=== PATIENT | male | born 1970 | race Caucasian/White ===

== ENCOUNTER 2020-08-20 11:44 | Outpatient (REF) | payer BC, SELFPAY | END 2020-08-20 11:45 | disposition home or self-care (01) | LOC: HO.LAB 11:44 | PROVIDERS: PCP Internal Medicine; Visit Provider Internal Medicine | DX: Z20.828 Contact with and (suspected) exposure to other viral communicable diseases (principal) | CPT/HCPCS: C9803; U0003 ==

== ENCOUNTER 2024-09-03 12:10 | Outpatient (AMB) | payer OTHER, SELFPAY ==
--- NOTE | 2024-09-03 12:15 | A.OFFPC_ITS ---
Vital Signs 09/03/24 12:22 09/03/24 12:44 Height 5 ft 10 in Weight 180 lb 8 oz BMI 25.9 BP 143/75 H 138/80 Blood Pressure Location Rt brachial Rt brachial Position Sitting Right Lateral Respiration 16 Pulse 83 Pulse Source Pulse Oximeter Temp 98.4 F Temp Source Temporal Artery Scan Pulse Oximetry (%) 100 Oxygen Delivery Method Room Air Intake Visit Reasons: Haven't seen a doctor in a while Intake Note: patient here for New patient visit Chief Growth Officer Required: No Allergies No Known Allergies [No Known Allergies*] Allergy (Verified 09/03/24 12:29) Medication List - Last Reconciled 09/03/24 by Jocelynn Louis CNP No Known Home Meds Tobacco use date assessed: 09/03/24 Dental Screening Dental Screen Date: 09/03/24 Did you have a dental visit in the last 12 months?: No Did you have a dental problem in the last 6 months where you did not have access to dental care?: No Was dental information given to patient?: Yes HPI HPI Comments History of Present Illness Details New patient Prior PCP: Max Downey Last office visit/labs: About 12 years ago Last physical was with DOT: About 3 years ago The patient is a 53-year-old male presenting with a request to establish a primary care relationship and obtain a referral for ophthalmologic evaluation due to glare and visual disturbances following intraocular lens implants in both eyes. The patient has a history of achalasia, diagnosed at age 28, which he continues to manage. He had undergone intraocular lens implantation approximately two years ago, following the failure of a previous lens procedure intended to correct poor vision, which resulted in halos and glares. The implants were performed as an alternative after being advised against Lasik surgery due to age-related visual concerns. Despite current treatment with eye drops, provided by Dr. Meyer in [facility] the patient reports persistent issue with glare. His inspector eyeglass frames, Dr. Meyer, requested a new ophthalmology referral. Health Maintenance - Last eye exam was with Anton Samano, a month ago - No history of shingles vaccination; re commended at age 48 - Tetanus vaccination due today; last ad ministered 10 years ago - No current flu vaccinations; patient d eclines - Colonoscopy conducted seven years ago, reported as normal - Regular exercise regime with weight li fting and daily physical activity - Healthy diet generally maintained - Consumes 6-8 beers per week, predomina ntly over weekends - Smoking and recreational drug use lia ed - Routine dental care last accessed appr oximately seven years ago for cleaning; follow-up recommended Social History - Engages in regular weight lifting and physical activity daily as part of work routine - Reports generally maintaining a health y diet - Alcohol consumption averages 6-8 beers weekly, primarily on weekends - Denies use of tobacco or recreational drugs - Previously employed at [employer] PMHx - Acalasia SurgHx - Intra-ocular lens implant FHx: - Dad: alcohol abuse [facility] Medical History (Updated 09/03/24 @ 13:04 by Jocelynn Louis CNP) Achalasia Surgical History (Updated 09/03/24 @ 13:04 by Jocelynn Louis CNP) History of intraocular lens implant Family History (Updated 09/03/24 @ 12:31 by Tasha Gayle) Father Alcohol abuse Brother Asthma Social History Housing: House Patient Tobacco Use Status: Never used Tobacco e-Cigarette/Vaping Use: Never Used service: No Current occupational status: employed Current occupation: [employer] Current occupational exposures/hazards: No Cognitive needs: No Hearing needs: No Vision needs: No Questionnaire PHQ-9 Over the last 2 weeks, how often have you been bothered by any of the following problems? 1. Little interest or pleasure in doing things: not at all 2. Feeling down, depressed, or hopeless: not at all 3. Trouble falling or staying asleep, or sleeping too much: not at all 4. Feeling tired or having little energy: several days 5. Poor appetite or overeating: not at all 6. Feeling bad about yourself - or that you are a failure or have let yourself or your family down: not at all 7. Trouble concentrating on things, such as reading the newspaper or watching television: several days 8. Moving or speaking so slowly that other people could have noticed. Or the opposite - being so fidgety or restless that you have been moving around a lot more than usual: not at all 9. Thoughts that you would be better off or of hurting yourself in some way: not at all Total score: 2 Depression Screening Interpretation: Negative Depression Screening Done: Yes 03046 - PHQ-9 Billing: Yes Source: Developed by Drs. Miguel Ángel Mena, Alva Cobb, Bg Raygoza and colleagues, with an educational leidy from [employer]. Thrive Questionnaire Date Thrive assessed: 09/03/24 I am a: Patient What is your living situation today?: I have a steady place to live Within the past 12 months, did the food you bought not last and you didn't have the money to get more?: Never true Within the past 12 months, did you worry whether your food would run out before you got money to buy more?: Never true Do you have trouble paying for medicines?: No Do you have trouble getting transportation to medical appointments?: No Do you have trouble paying your heating and electricity bill?: No Do you have trouble taking care of your child, family member or friend?: No Do you have trouble with day-to-day activities such as bathing, preparing meals, shopping, managing finances, etc.?: No Are you currently unemployed and looking for a job?: No Are you interested in more education?: No Please select the resources that you would like help with: None Currently or been in a relationship where the following occur: No concerns reported THRIVE Score: 0 AUDIT C Alcohol Use Questionnaire (AUDIT-C) 1. How often do you have a drink containing alcohol?: 2-4 times a month 2. How many drinks containing alcohol do you have on a typical day when you are drinking?: 5 or 6 3. How often do you have six or more drinks on one occasion?: Monthly Total Score: 6 Score Reviewed/Action Taken: Yes MACI-7 AMB Questionnaire MACI-7 Date MACI - 7 assessed: 09/03/24 Feeling nervous, anxious, or on edge: 1 = Several days Not being able to stop or control worryin = Not at all Worrying too much about different things: 1 = Several days Trouble relaxin = Several days Being so restless that it is hard to sit still: 1 = Several days Becoming easily annoyed or irritable: 1 = Several days Feeling afraid as if something awful might happen: 0 = Not at all Total MACI-7 score (0-4 normal; 5-9 mild; 10-14 moderate; 15-21 severe): 5 Source: Developed by Drs. Miguel Ángel Mena, Alva Cobb, Bg Raygoza and colleagues, with an educational leidy from [employer] MACI-7 Assessment Billing MACI-7 Assessment Tool: MACI-7 Assessment 06792 Review of Systems Const Details: Denies chills, Denies fatigue, Denies fever(s), Denies headache(s) and Denies weakness HEENT Reports glare and halos in vision post-intraocular lens implants, Denies dizziness, Denies headache(s), Denies hearing loss, Denies nasal congestion, Denies sinus pain, Denies sinus pressure and Denies sore throat Card Denies chest pain, Denies lightheadedness, Denies dyspnea and Denies other (palpitations) Resp Denies cough, Denies dyspnea and Denies wheezing GI Denies abdominal pain, Denies melena, Denies hematochezia, Denies change in bowel habits, Denies dyspepsia and Denies nausea Denies hematuria and Denies dysuria Musc Denies abnormal gait, Denies myalgias, Denies arthralgias, Denies numbness and Denies tingling Skin/Breast Denies rash, Denies unusual bruising and Denies wounds Neuro Denies abnormal gait, Denies dizziness, Denies headache(s), Denies memory loss, Denies numbness, Denies Sensory deficit (Neuro), Denies tingling and Denies weakness Psych Denies anxiety, Denies depression and Denies memory loss Endo Denies cold intolerance, Denies fatigue, Denies heat intolerance, Denies p olydipsia and Denies polyuria Daniel/Lymph Denies easy bleeding and Denies easy bruising Aller/Immun Denies wheezing Physical exam (Primary Care) Vital Signs: Last Vital Signs Temp 98.4 F 09/03/24 12:22 Pulse 83 09/03/24 12:22 Resp 16 09/03/24 12:22 BP 138/80 09/03/24 12:44 Pulse Ox 100 09/03/24 12:22 Oxygen Delivery Method Room Air 09/03/24 12:22 BMI result Body Mass Index 25.9 Tobacco/Smoking Status: Tobacco use Status Tobacco use date assessed 09/03/24 09/03/24 12:22 Patient Tobacco Use Status Never used Tobacco 09/03/24 12:22 e-Cigarette/Vaping Use Never Used 12/11/24 12:22 PHQ-9: PHQ-9 Score PHQ-9: Total score 2 09/03/24 12:33 Depression Screening Interpretation: Negative Thrive Assessment: Date of Thrive Assessment Date Thrive assessed 09/03/24 09/03/24 12:22 Currently or been in a relationship where the following occur: No concerns reported Const Other: General: no acute distress, well developed, alert and awake Nutritional Appearance: well nourished Orientation/consciousness: patient oriented x3 [facility] Head: Yes normocephalic and Yes atraumatic Ears: hearing grossly normal bilaterally and TM's normal bilaterally General nose exam: Normal external nose present and Normal nares present Mouth: Normal oral and palatal mucosa present and moist mucous membranes Teeth and gingiva: dentition normal Throat: Yes oropharynx normal Eyes Pupils: Equal, round and reactive pupils present and Pupil accommodation reflex normal EOM: EOMs intact bilaterally Neck Neck: Yes normal visual inspection, Yes no lymphadenopathy and Yes trachea midline Thyroid: Thyroid normal Carotids: no bruits Lymphatic: no lymphadenopathy noted Chest Chest palpation & inspection: normal inspection of the chest Resp Effort & Inspection: normal respiratory effort Auscultation: clear to auscultation bilaterally Cardio Rate: regular rate Rhythm: regular rhythm Heart sounds: S1 normal heart sound present, S2 normal heart sound present, no gallops, no murmurs and no rubs Bruits: no abdominal aortic bruits and no carotid bruits GI Palpation (GI): No Abdominal aortic bruit present, Soft to palpation, nontender, No hepatosplenomegaly present and No Rebound tenderness present Auscultation: normal bowel sounds General: Yes no CVA tenderness Back/Spine/Pelvis Back: no CVA tenderness Cervical Spine: cervical ROM normal and No Cervical spine tenderness Thoracic/Lumbar Spine: thoraco-lumbar ROM normal, No pain with thoraco-lumbar ROM, No thoracic spinal tenderness and No lumbar spinal tenderness Skin General: warm and dry. Normal skin color. Normal skin turgor Lesions: no lesions Rashes: no rashes Trauma: no lacerations or abrasions Wounds: no wounds Nails: normal Neuro General: patient oriented x3, gait normal and CN's II-XI intact bilaterally Cranial nerves: Yes Equal, round and reactive pupils present Cognition (Neuro): normal cognition Gait exam (Neuro): Normal gait present Motor exam (neuro): 5/5 motor strength present throughout Sensory Exam: No Sensory deficit (Neuro) Deep tendon reflexes (DTR's): Right patellar reflex intensity grade: 2+ and Left patellar reflex intensity grade: 2+ Extrem General: Yes normal to inspection, No edema and No calf tenderness Psych Appearance: grossly normal Affect: normal affect Attitude: cooperative Thought process: Normal thought process present Immunizations Boostrix Tdap 2.5 Lf unit-8 mcg-5 Lf/0.5 mL intramuscular syringe Performing Provider: Jocelynn Louis CNP Performing Location[place] [facility] Administered by: Madison Booker RN on 09/03/24 13:00 Dose Route Admin Location Dispensed Lot Number Expiration Date NDC Cable Testers Helper 0.5 mL IM Left Deltoid 0.5 mL [id number] 10/15/26 [id number] [employer] VIS Given Date VIS Provided VIS Publication Date 09/03/24 Single Vaccine 21 Eligibility Eligibility Date Funding Source Not [facility] Eligible 09/03/24 Private Coding Level of Care Code New Pt Prev Care 40-64y(12745) Diagnoses Normal physical examination, routine Z00.00 Achalasia K22.0 History of intraocular lens implant Z96.1 Visual disturbances H53.9 Vaccine for tetanus toxoid Z23 Laboratory tests ordered as part of a complete physical exam (CPE) Z00.00 Additional Codes MACI-7 Assessment Billing - MACI-7 Assessment Tool: MACI-7 Assessment 28435 ([id number]) PHQ-9 - 07736 - PHQ-9 Billing: Yes ([id number]) Assessment & Plan Assessment & Plan (1) Normal physical examination, routine: Code(s): Z00.00 - Encounter for general adult medical examination without abnormal findings Category: Medical Plan: No significant physical limitation noted. (2) Achalasia: Code(s): K22.0 - Achalasia of cardia Category: Medical Plan: Monitoring of condition as patient reports ongoing management without signi ficant recent issues. (3) History of intraocular lens implant: Code(s): Z96.1 - Presence of intraocular lens Category: Surgical Plan: Referral to his cyberathlete for evaluation of visual disturbances, including glare and halos.Recommended follow-up with current inspector eyeglass frames, Dr. Meyer, for ongoing management of postoperative visual symptoms. (4) Visual disturbances: Code(s): H53.9 - Unspecified visual disturbance Category: Medical Plan: Plan as above. (5) Vaccine for tetanus toxoid: Code(s): Z23 - Encounter for immunization Category: Medical Plan: Tetanus vaccination to be administered today, encouraged to receive shingles vaccine. (6) Laboratory tests ordered as part of a complete physical exam (CPE): Code(s): Z00.00 - Encounter for general adult medical examination without abnormal findings Category: Medical Plan: Fasting labs ordered as part of a complete physical exam. Advised to fast for at least 10 hours before getting labs drawn. May drink water Verbalized understanding and agreed with treatment plan. Plan During the consultation, I acknowledged the patient's need for the establishment of care and addressed the primary concerns related to his visual disturbances following intraocular lens implants. We discussed the importance of following up with his inspector eyeglass frames for ongoing management of glare and halos. I advised a referral to ensure appropriate documentation for insurance purposes. Preventive health measures, including tetanus vaccination and comprehensive lab work, were recommended, and the patient agreed to receive the tetanus vaccine. I also discussed the patient's lifestyle choices, including alcohol consumption and exercise, and encouraged the continuation of healthy habits. The need for routine dental care and shingles vaccination was highlighted, and the patient was receptive to these recommendations. Orders: Orders TSH reflex Free T4 Today Z00.00 - Encounter for general adult medical examination without abnormal findings UA CC w/rflx Micro + Cult Today Z00.00 - Encounter for general adult medical examination without abnormal findings PSA, Ultra Sensitive Today Z00.00 - Encounter for general adult medical examin ation without abnormal findings TDaP Immunization Today Z23 - Encounter for immunization Complete Blood Count Auto Diff Today Z00.00 - Encounter for general adult medical examination without abnormal findings Comprehensive [place]. Panel Fast Today Z00.00 - Encounter for general adult medical examination without abnormal findings Microalbumin, Random (w Creat) Today Z00.00 - Encounter for general adult medical examination without abnormal findings Lipid Panel Today Z00.00 - Encounter for general adult medical examination without abnormal findings Referrals Ophthalmology Referral H53.9 - Unspecified visual disturbance, Z96.1 - Presence of intraocular lens Patient Instructions: - Follow up with Dr. Meyer for further evaluation and management of glare and visual disturbances. - Schedule comprehensive blood work and urine analysis, ensuring a 10-12 hour fast beforehand. - Receive the tetanus vaccine today. - Consider getting vaccinated for shingles at a local pharmacy. - Maintain current exercise routine and healthy dietary practices. - Moderate weekend alcohol consumption. - Arrange for routine dental care following the long gap since the last visit. - Schedule a telehealth follow-up appointment in 2-3 weeks to review lab results. Patient was informed and verbally consented to the use of an ambient scribe for clinic note documentation during this visit.
[2024-09-03 12:22] VITALS: BP 143/75; PULSE 83; RESP 16; TEMP 36.9; O2SAT 100; BMI 25.9
[2024-09-03 12:44] VITALS: BP 138/80
--- OUTSIDE RECORDS SUMMARY | 2024-09-04 01:59 | XMS_ITS ---
Author Organization [facility] Address [address] [place] [address] Care Team Providers Care Balance Wheel Screw Hole Tapper Name Role Phone Paris Coello Unavailable [phone] ALLERGIES, ADVERSE REACTIONS, ALERTS None MEDICATIONS Medication Code Code System Start Date Stop Date Route Dosage Directions Fill Instructions ibuprofen 792368 RxNorm 024 oral 1 amoxicillin-p ot clavulanate 982420 RxNorm 024 oral 1 Flonase Allergy Relief 8980718 RxNorm 024 intranasal 1 PROBLEMS Problem Name Code Code System Start Date End Date Stat Acute sinusitis, unspecified 93206536 [facility] 07/13/2024 Active ENCOUNTERS Encounter Diagnosis Code Code System Date Stat Acute sinusitis, unspecified 63986099 [facility] 024 Active IMMUNIZATIONS * None VITAL SIGNS Code Code System Vitals Name Date Value and Un its 8462-4 [facility] Blood Pressure-Diastolic 07/13/2024 83 mmHg 8480-6 [facility] Blood Pressure-Systolic 07/13/2024 1 64 mmHg 8867-4 [facility] Heart Rate 07/13/2024 69 /min 9279-1 [facility] Respiratory Rate 07/13/2024 18 /min 8310-5 [facility] Body Temperature 07/13/2024 96.9 F 95552-4 [facility] Oxygen Saturation 07/13/2024 98 % SOCIAL HISTORY * None PROCEDURES * None MEDICAL EQUIPMENT * Patient has no history of implantable devices ASSESSMENT * None TREATMENT PLAN Type Description Date MEDICATION Take 875-125 mg tablet MEDICATION Take 50 mcg/actuation spray, yohannes pension 07/13/2024 MEDICATION Take 800 mg tablet 07/13/2024 APPOINTMENT If not feeling janell r in 3 day(s), please see your primary care physician. If you do not have a primary care physician, please return to this clinic. 07/13/2024 Lab Tests None GOALS * None HEALTH CONCERNS * No Health Concerns FUNCTIONAL AND COGNITIVE STATUS Condition Type Condition Effective Dates Condition Status CONSULTATION NOTES * None DISCHARGE SUMMARY NOTES * None HISTORY AND PHYSICAL NOTES * Reason for visit - Illness IMAGING NOTES * None LABORATORY REPORT NARRATIVE NOTES * None PATHOLOGY REPORT NARRATIVE NOTES * None PROGRESS NOTES * None
--- OUTSIDE RECORDS SUMMARY | 2024-09-04 01:59 | XMS_ITS ---
Author Organization [facility] Address [address] [place] [address] Care Team Providers Care Site Reliability Engineer Name Role Phone Janelle Man Unavailable [phone] ALLERGIES, ADVERSE REACTIONS, ALERTS None MEDICATIONS Medication Code Code System Start Date Stop Date Route Dosage Directions Fill Instructions ibuprofen 523106 RxNorm 024 oral 1 amoxicillin-p ot clavulanate 867837 RxNorm 024 oral 1 Flonase Allergy Relief 9265198 RxNorm 024 intranasal 1 PROBLEMS Problem Name Code Code System Start Date End Date Stat us Acute sinusitis, unspecified 96520616 [facility] 07/13/2024 Active ENCOUNTERS Encounter Diagnosis Code Code System Date Stat us Toxic effect of venom of was ps, accidental (unintentional), initial encounter 876807687 [facility] 03/01/2024 Active IMMUNIZATIONS * None VITAL SIGNS Code Code System Vitals Name Date Value and Un its 8462-4 [facility] Blood Pressure-Diastolic 03/01/2024 78 mmHg 8480-6 [facility] Blood Pressure-Systolic 03/01/2024 1 20 mmHg 8867-4 [facility] Heart Rate 03/01/2024 73 /min 9279-1 [facility] Respiratory Rate 03/01/2024 16 /min 8310-5 [facility] Body Temperature 03/01/2024 97.7 F 19945-9 [facility] Oxygen Saturation 03/01/2024 98 % SOCIAL HISTORY * None PROCEDURES * None MEDICAL EQUIPMENT * Patient has no history of implantable devices ASSESSMENT * None TREATMENT PLAN Type Description Date MEDICATION Take 10 mg tablet 03/01/2024 APPOINTMENT If not feeling janell r in 3 day(s), please see your primary care physician. If you do not have a primary care physician, please return to this clinic. 03/01/2024 Lab Tests None GOALS * None HEALTH CONCERNS * No Health Concerns FUNCTIONAL AND COGNITIVE STATUS * None CONSULTATION NOTES * None DISCHARGE SUMMARY NOTES * None HISTORY AND PHYSICAL NOTES * None IMAGING NOTES * /[place] History: Swelling-Right Hand: The patient presents with a chief complaint of swelling of the right hand since Feb 28, 2024.RIGHT - FINGER #4, 2 OR MORE VIEWS Comparison: FINDINGS:Soft tissue swelling is appreciable.Features of a remote fracture involving the distal diaphysis of the fifth metacarpal with surrounding callus formation No acute fracture or subluxation is evident on provided views.There are no advanced degenerative changes are evident.No radiodense foreign bodies are identified. IMPRESSION:As above LABORATORY REPORT NARRATIVE NOTES * None PATHOLOGY REPORT NARRATIVE NOTES * None PROGRESS NOTES * None
== END 2024-09-03 13:03 | disposition home or self-care (01) ==
PROVIDERS: PCP Nurse Practitioner Family; Visit Provider Nurse Practitioner Family
DX: Z00.00 Encounter for general adult medical examination without abnormal findings (principal); K22.0 Achalasia of cardia; Z96.1 Presence of intraocular lens; H53.9 Unspecified visual disturbance; Z23 Encounter for immunization

== ENCOUNTER → 2024-09-03 12:10 | Outpatient (BNVA) | payer OTHER, SELFPAY | PROVIDERS: PCP Nurse Practitioner Family; Visit Provider Nurse Practitioner Family | DX: Z00.00 Encounter for general adult medical examination without abnormal findings (principal); Z23 Encounter for immunization; K22.0 Achalasia of cardia; H53.9 Unspecified visual disturbance; Z96.1 Presence of intraocular lens | CPT/HCPCS: 90471; 90715; 96127 ==

== ENCOUNTER 2024-09-06 06:48 | Outpatient (REF) | payer OTHER, SELFPAY ==
--- OUTSIDE RECORDS SUMMARY | 2024-09-06 06:50 | XMS_ITS ---
Author Organization [facility] Address [address] [place] [address] Care Team Providers Care Furnishings Conservator Name Role Phone Janelle Man Unavailable [phone] ALLERGIES, ADVERSE REACTIONS, ALERTS None MEDICATIONS Medication Code Code System Start Date Stop Date Route Dosage Directions Fill Instructions ibuprofen 825617 RxNorm 024 oral 1 amoxicillin-p ot clavulanate 433480 RxNorm 024 oral 1 Flonase Allergy Relief 6129382 RxNorm 024 intranasal 1 PROBLEMS Problem Name Code Code System Start Date End Date Stat us Acute sinusitis, unspecified 41506366 [facility] 07/13/2024 Active ENCOUNTERS Encounter Diagnosis Code Code System Date Stat us Toxic effect of venom of was ps, accidental (unintentional), initial encounter 739155984 [facility] 03/01/2024 Active IMMUNIZATIONS * None VITAL SIGNS Code Code System Vitals Name Date Value and Un its 8462-4 [facility] Blood Pressure-Diastolic 03/01/2024 78 mmHg 8480-6 [facility] Blood Pressure-Systolic 03/01/2024 1 20 mmHg 8867-4 [facility] Heart Rate 03/01/2024 73 /min 9279-1 [facility] Respiratory Rate 03/01/2024 16 /min 8310-5 [facility] Body Temperature 03/01/2024 97.7 F 17697-4 [facility] Oxygen Saturation 03/01/2024 98 % SOCIAL [...] PHYSICAL NOTES * None IMAGING NOTES * /[place] History: Swelling-Right Hand: The patient presents with [...]
--- OUTSIDE RECORDS SUMMARY | 2024-09-06 06:50 | XMS_ITS ---
Author Organization [facility] Address [address] [place] [address] Care Team Providers Care Safe Technician Name Role Phone Paris Coello Unavailable [phone] ALLERGIES, ADVERSE REACTIONS, ALERTS None MEDICATIONS Medication Code Code System Start Date Stop Date Route Dosage Directions Fill Instructions ibuprofen 759167 RxNorm 024 oral 1 amoxicillin-p ot clavulanate 183080 RxNorm 024 oral 1 Flonase Allergy Relief 9002756 RxNorm 024 intranasal 1 PROBLEMS Problem Name Code Code System Start Date End Date Stat Acute sinusitis, unspecified 20524621 [facility] 07/13/2024 Active ENCOUNTERS Encounter Diagnosis Code Code System Date Stat Acute sinusitis, unspecified 60642287 [facility] 024 Active IMMUNIZATIONS * None VITAL SIGNS Code Code System Vitals Name Date Value and Un its 8462-4 [facility] Blood Pressure-Diastolic 07/13/2024 83 mmHg 8480-6 [facility] Blood Pressure-Systolic 07/13/2024 1 64 mmHg 8867-4 [facility] Heart Rate 07/13/2024 69 /min 9279-1 [facility] Respiratory Rate 07/13/2024 18 /min 8310-5 [facility] Body Temperature 07/13/2024 96.9 F 74427-9 [facility] Oxygen Saturation 07/13/2024 98 % SOCIAL HISTORY [...]
--- OUTSIDE RECORDS SUMMARY | 2024-09-06 06:51 | XMS_ITS ---
Author Organization [facility] Address [address] [place] [address] Care Team Providers Care Sr. Unix System Administrator Name Role Phone Janelle Man Unavailable [phone] ALLERGIES, ADVERSE REACTIONS, ALERTS None MEDICATIONS Medication Code Code System Start Date Stop Date Route Dosage Directions Fill Instructions ibuprofen 817545 RxNorm 024 oral 1 amoxicillin-p ot clavulanate 045189 RxNorm 024 oral 1 Flonase Allergy Relief 5609845 RxNorm 024 intranasal 1 PROBLEMS Problem Name Code Code System Start Date End Date Stat us Acute sinusitis, unspecified 74525092 [facility] 07/13/2024 Active ENCOUNTERS Encounter Diagnosis Code Code System Date Stat us Toxic effect of venom of was ps, accidental (unintentional), initial encounter 323965746 [facility] 03/01/2024 Active IMMUNIZATIONS * None VITAL SIGNS Code Code System Vitals Name Date Value and Un its 8462-4 [facility] Blood Pressure-Diastolic 03/01/2024 78 mmHg 8480-6 [facility] Blood Pressure-Systolic 03/01/2024 1 20 mmHg 8867-4 [facility] Heart Rate 03/01/2024 73 /min 9279-1 [facility] Respiratory Rate 03/01/2024 16 /min 8310-5 [facility] Body Temperature 03/01/2024 97.7 F 92630-1 [facility] Oxygen Saturation 03/01/2024 98 % SOCIAL [...] PHYSICAL NOTES * None IMAGING NOTES * /[place] History: Swelling-Right Hand: The patient presents with [...]
--- OUTSIDE RECORDS SUMMARY | 2024-09-06 06:51 | XMS_ITS ---
Author Organization [facility] Address [address] [facility] [address] Care Team Providers Care Associate Quality Engineer Name Role Phone Paris Coello Unavailable [phone] ALLERGIES, ADVERSE REACTIONS, ALERTS None MEDICATIONS Medication Code Code System Start Date Stop Date Route Dosage Directions Fill Instructions ibuprofen 755120 RxNorm 024 oral 1 amoxicillin-p ot clavulanate 939830 RxNorm 024 oral 1 Flonase Allergy Relief 2457721 RxNorm 024 intranasal 1 PROBLEMS Problem Name Code Code System Start Date End Date Stat Acute sinusitis, unspecified 98928924 [facility] 07/13/2024 Active ENCOUNTERS Encounter Diagnosis Code Code System Date Stat Acute sinusitis, unspecified 13476957 [facility] 024 Active IMMUNIZATIONS * None VITAL SIGNS Code Code System Vitals Name Date Value and Un its 8462-4 [facility] Blood Pressure-Diastolic 07/13/2024 83 mmHg 8480-6 [facility] Blood Pressure-Systolic 07/13/2024 1 64 mmHg 8867-4 [facility] Heart Rate 07/13/2024 69 /min 9279-1 [facility] Respiratory Rate 07/13/2024 18 /min 8310-5 [facility] Body Temperature 07/13/2024 96.9 F 49748-8 [facility] Oxygen Saturation 07/13/2024 98 % SOCIAL HISTORY [...]
[2024-09-06 11:12] LABS: MANUAL DIFF FLAG NO
[2024-09-06 11:16] LABS: Basophils Percent Auto 0.5 % (0-2); Eosinophils Absolute Auto 0.4 X10*3/uL (0.0-0.4); Eosinophils Percent Auto 6.4 % (0-4); Hematocrit 43.5 % (42.0-52.0); Hemoglobin 14.7 g/dl (14.0-18.0); Imm Gran Abs Auto 0.01 X10*3/uL (0.00-0.03); Imm Gran Pct Auto 0.2 % (0.0-0.4); Lymphocytes Absolute Auto 2.2 X10*3/uL (1.2-4.9); Lymphocytes Percent Auto 38.5 % (20-40); Mean Corpuscular HGB Conc 33.8 g/dl (31.0-36.0); Mean Corpuscular Hemoglobin 30.4 pg (27.0-33.0); Mean Corpuscular Volume 90.1 fL (80.0-98.0); Mean Platelet Volume 10.1 fL (9.4-12.4); Monocytes Absolute Auto 0.5 X10*3/uL (0.1-1.2); Monocytes Percent Auto 8.8 % (2-11); Neutrophils Absolute Auto 2.6 x10*3/uL (2.0-8.3); Neutrophils Percent Auto 45.6 % (45-73); Platelet Count 297 X10*3/uL (160-400); Red Blood Count 4.83 X10*6/uL (4.60-5.80); White Blood Count 5.6 X10*3/uL (4.8-10.8)
[2024-09-06 11:57] LABS: Appearance Urine Clear; Color Urine Yellow; Glucose Urine UA Negative (Negative); Leukocyte Esterase Urine Negative (Negative); Nitrite Urine Negative (Negative); PH 5.5 (5.0-9.0); Specific Gravity - Urine 1.025 (1.005-1.025); UMIC TRIGGER UACC YES; Urine Blood Trace (Negative); Urine Ketones Negative (Negative); Urine Protein Negative (Neg-Trace)
[2024-09-06 12:01] LABS: Alanine Aminotransferase 26 U/L (0-40); Albumin Level 4.6 g/dL (3.5-5.0); Alkaline Phosphatase 41 U/L (39-117); Anion Gap 12 (12-20); Aspartate Amino Transferase 28 U/L (5-37); Bilirubin Total 0.7 mg/dL (0.0-1.0); Blood Urea Nitrogen 20 mg/dL (9-16); Calcium 9.5 mg/dL (8.4-10.2); Carbon Dioxide 28 mmol/L (22-29); Chloride 104 mmol/L (96-108); Cholesterol 206 mg/dL (<200); Estimated Glomerular Filt Rate > 60; Glucose Fasting 96 mg/dL (60-99); HDL Cholesterol 61 mg/dL (>40); LDL Cholesterol Calculated 126 mg/dL (<100); Potassium 4.4 mmol/L (3.3-5.1); Sodium 140 mmol/L (135-145); Total Protein 7.5 g/dL (6.5-8.0); Triglycerides 98 mg/dL (<150)
[2024-09-06 12:02] LABS: Bacteria Urine None Seen (None Seen); Hyaline Casts Urine 0-2 /LPF (0-2); RBC Urine 0-2 /HPF (0-2); Squamous Epithelial Cell Urine 0-2 /HPF (0-2); WBC Urine 0-5 /HPF (0-5)
[2024-09-06 12:18] LABS: TSH reflex Free T4 1.91 uIU/mL (0.32-4.0)
[2024-09-06 12:25] LABS: Creatinine Urine 192.24 mg/dL; Microalbum/Creatinine Ratio Ur 6.7 ug/mg cr (<30)
[2024-09-13 14:08] LABS: PSA, Ultra Sensitive 1.52 ng/mL
== END 2024-09-06 06:49 | disposition home or self-care (01) ==
LOC: HO.HMGCLDS 06:48
PROVIDERS: PCP Nurse Practitioner Family; Visit Provider Nurse Practitioner Family
DX: Z00.00 Encounter for general adult medical examination without abnormal findings (principal); Z12.5 Encounter for screening for malignant neoplasm of prostate
CPT/HCPCS: 36415; 80053; 80061; 81001; 81003; 82043; 82570; 84153; 84443; 85025

== ENCOUNTER 2024-09-18 15:03 | Outpatient (AMB) | payer OTHER, SELFPAY ==
--- NOTE | 2024-09-18 14:31 | MHC.PC.OV ---
Intake Visit Reasons: 2-3 wks labs review Intake Note: patient here for telehealth for lab review. Hair Or Beauty Salon Assistant Required: No Allergies No Known Allergies [No Known Allergies*] Allergy (Verified 09/18/24 14:31) Tobacco use date assessed: 09/18/24 Dental Screening Dental Screen Date: 09/18/24 Did you have a dental visit in the last 12 months?: No Did you have a dental problem in the last 6 months where you did not have access to dental care?: No Was dental information given to patient?: No HPI HPI Comments History of Present Illness Details 53-year-old male presents for telehealth visit for review of recent lab results. No acute symptoms. PFSH Medical History (Updated 09/18/24 @ 14:59 by Jocelynn Louis CNP) Achalasia Surgical History (Updated 09/03/24 @ 13:04 by Jocelynn Louis CNP) History of intraocular lens implant Family History (Updated 09/03/24 @ 12:31 by Tasha Gayle) Father Alcohol abuse Brother Asthma Social History Housing: House Patient Tobacco Use Status: Never used Tobacco e-Cigarette/Vaping Use: Never Used Second Hand Smoke Exposure: No service: No Current occupational status: employed Current occupation: [employer] Current occupational exposures/hazards: No Cognitive needs: No Hearing needs: No Vision needs: No Questionnaire Thrive Questionnaire Date Thrive assessed: 08/27/24 I am a: Patient What is your living situation today?: I have a steady place to live Within the past 12 months, did the food you bought not last and you didn't have the money to get more?: Never true Within the past 12 months, did you worry whether your food would run out before you got money to buy more?: Never true Do you have trouble paying for medicines?: No Do you have trouble getting transportation to medical appointments?: No Do you have trouble paying your heating and electricity bill?: No Do you have trouble taking care of your child, family member or friend?: No Do you have trouble with day-to-day activities such as bathing, preparing meals, shopping, managing finances, etc.?: No Are you currently unemployed and looking for a job?: No Are you interested in more education?: No Please select the resources that you would like help with: None Currently or been in a relationship where the following occur: No concerns reported THRIVE Score: 0 MACI-7 AMB Questionnaire MACI-7 Date MACI - 7 assessed: 09/03/24 Source: Developed by Drs. Miguel Ángel Mena, Alva Cobb, Bg Raygoza and colleagues, with an educational leidy from [employer]. Review of Systems Const Details: Const Denies chills, Denies fatigue, Denies fever(s), Denies headache(s) and Denies weakness ENT Denies dizziness and Denies headache(s) Card Denies chest pain, Denies lightheadedness, Denies dyspnea and Denies other (Palpitations) Resp Denies cough, Denies dyspnea, Denies wheezing and Denies other ( shortness of breath) GI Denies abdominal pain, Denies melena, Denies hematochezia, Denies change in bowel habits, Denies dyspepsia and Denies nausea Denies hematuria and Denies dysuria Musc Denies abnormal gait, Denies myalgias, Denies arthralgias, Denies numbness and Denies tingling Skin/Breast Denies rash, Denies unusual bruising and Denies wounds Neuro Denies abnormal gait, Denies dizziness, Denies headache(s), Denies memory loss, Denies numbness, Denies Sensory deficit (Neuro), Denies tingling and Denies weakness Psych Denies anxiety, Denies depression, Denies memory loss Endo Denies cold intolerance, Denies fatigue, Denies heat intolerance, Denies polydipsia and Denies polyuria Aller/Immun Denies wheezing Physical exam (Primary Care) Tobacco/Smoking Status: Tobacco use Status Tobacco use date assessed 09/18/24 09/18/24 14:32 Patient Tobacco Use Status Never used Tobacco 09/18/24 14:32 e-Cigarette/Vaping Use Never Used 09/18/24 14:32 Thrive Assessment: Date of Thrive Assessment Date Thrive assessed 08/27/24 09/18/24 14:32 Currently or been in a relationship where the following occur: No concerns reported Const Other: Telehealth visit. No physical exam. Telehealth Telehealth Telehealth Platform: Telephone Location of provider rendering services: practice address Location of patient: address on file Patient Identification confirmed using: Name, : Yes Telehealth method: voice only Patient verbally consented to treatment: Yes Patient verbally consented to billing insurance company: Yes Patient informed of any privacy concerns related to visit: Yes Coding Level of Care Code Tele Est Pt Level 3 (41986) Diagnoses Hypercholesterolemia E78.00 Time Spent (min) 10 Assessment & Plan Assessment & Plan (1) Hypercholesterolemia: Code(s): E78.00 - Pure hypercholesterolemia, unspecified Category: Medical Plan: Recent total cholesterol and LDL levels are slightly elevated, 206 and 126 respectively. Advised to limit foods high in saturated fat and avoid foods high in trans fat. Routine exercise encouraged. Will monitor lipid panel levels and will he or if symptomatic. Advised to schedule his next physical exam no sooner than 09/03/2024. Return sooner with symptoms or concerns. Verbalized understanding and agreed with treatment plan.
--- OUTSIDE RECORDS SUMMARY | 2024-09-18 15:04 | XMS_ITS ---
Author Organization [facility] Address [address] [place] [address] Care Team Providers Care Jump Iron Machine Presser Name Role Phone Paris Coello Unavailable [phone] ALLERGIES, ADVERSE REACTIONS, ALERTS None MEDICATIONS Medication Code Code System Start Date Stop Date Route Dosage Directions Fill Instructions ibuprofen 522465 RxNorm 024 oral 1 amoxicillin-p ot clavulanate 134105 RxNorm 024 oral 1 Flonase Allergy Relief 2900318 RxNorm 024 intranasal 1 PROBLEMS Problem Name Code Code System Start Date End Date Stat Acute sinusitis, unspecified 87518007 [facility] 07/13/2024 Active ENCOUNTERS Encounter Diagnosis Code Code System Date Stat Acute sinusitis, unspecified 60649675 [facility] 024 Active IMMUNIZATIONS * None VITAL SIGNS Code Code System Vitals Name Date Value and Un its 8462-4 [facility] Blood Pressure-Diastolic 07/13/2024 83 mmHg 8480-6 [facility] Blood Pressure-Systolic 07/13/2024 1 64 mmHg 8867-4 [facility] Heart Rate 07/13/2024 69 /min 9279-1 [facility] Respiratory Rate 07/13/2024 18 /min 8310-5 [facility] Body Temperature 07/13/2024 96.9 F 36085-9 [facility] Oxygen Saturation 07/13/2024 98 % SOCIAL HISTORY [...]
--- OUTSIDE RECORDS SUMMARY | 2024-09-18 15:04 | XMS_ITS ---
Author Organization [facility] Address [address] [place] [address] Care Team Providers Care Wind Instrument Repairer Name Role Phone Janelle Man Unavailable [phone] ALLERGIES, ADVERSE REACTIONS, ALERTS None MEDICATIONS Medication Code Code System Start Date Stop Date Route Dosage Directions Fill Instructions ibuprofen 316165 RxNorm 024 oral 1 amoxicillin-p ot clavulanate 302178 RxNorm 024 oral 1 Flonase Allergy Relief 0275446 RxNorm 024 intranasal 1 PROBLEMS Problem Name Code Code System Start Date End Date Stat us Acute sinusitis, unspecified 67247533 [facility] 07/13/2024 Active ENCOUNTERS Encounter Diagnosis Code Code System Date Stat us Toxic effect of venom of was ps, accidental (unintentional), initial encounter 267072095 [facility] 03/01/2024 Active IMMUNIZATIONS * None VITAL SIGNS Code Code System Vitals Name Date Value and Un its 8462-4 [facility] Blood Pressure-Diastolic 03/01/2024 78 mmHg 8480-6 [facility] Blood Pressure-Systolic 03/01/2024 1 20 mmHg 8867-4 [facility] Heart Rate 03/01/2024 73 /min 9279-1 [facility] Respiratory Rate 03/01/2024 16 /min 8310-5 [facility] Body Temperature 03/01/2024 97.7 F 40567-6 [facility] Oxygen Saturation 03/01/2024 98 % SOCIAL [...] PHYSICAL NOTES * None IMAGING NOTES * /[place] History: Swelling-Right Hand: The patient presents with [...]
--- OUTSIDE RECORDS SUMMARY | 2024-09-18 15:05 | XMS_ITS ---
Author Organization [facility] Address [address] [place] [address] Care Team Providers Care Car Trimmer Name Role Phone Paris Coello Unavailable [phone] ALLERGIES, ADVERSE REACTIONS, ALERTS None MEDICATIONS Medication Code Code System Start Date Stop Date Route Dosage Directions Fill Instructions ibuprofen 992151 RxNorm 024 oral 1 amoxicillin-p ot clavulanate 798221 RxNorm 024 oral 1 Flonase Allergy Relief 2193946 RxNorm 024 intranasal 1 PROBLEMS Problem Name Code Code System Start Date End Date Stat Acute sinusitis, unspecified 35333418 [facility] 07/13/2024 Active ENCOUNTERS Encounter Diagnosis Code Code System Date Stat Acute sinusitis, unspecified 24863049 [facility] 024 Active IMMUNIZATIONS * None VITAL SIGNS Code Code System Vitals Name Date Value and Un its 8462-4 [facility] Blood Pressure-Diastolic 07/13/2024 83 mmHg 8480-6 [facility] Blood Pressure-Systolic 07/13/2024 1 64 mmHg 8867-4 [facility] Heart Rate 07/13/2024 69 /min 9279-1 [facility] Respiratory Rate 07/13/2024 18 /min 8310-5 [facility] Body Temperature 07/13/2024 96.9 F 73912-7 [facility] Oxygen Saturation 07/13/2024 98 % SOCIAL [...]
--- OUTSIDE RECORDS SUMMARY | 2024-09-18 15:05 | XMS_ITS ---
Author Organization [facility] Address [address] [place] [address] Care Team Providers Care Music Executive Name Role Phone Janelle Man Unavailable [phone] ALLERGIES, ADVERSE REACTIONS, ALERTS None MEDICATIONS Medication Code Code System Start Date Stop Date Route Dosage Directions Fill Instructions ibuprofen 186957 RxNorm 024 oral 1 amoxicillin-p ot clavulanate 312686 RxNorm 024 oral 1 Flonase Allergy Relief 0253664 RxNorm 024 intranasal 1 PROBLEMS Problem Name Code Code System Start Date End Date Stat us Acute sinusitis, unspecified 03918367 [facility] 07/13/2024 Active ENCOUNTERS Encounter Diagnosis Code Code System Date Stat us Toxic effect of venom of was ps, accidental (unintentional), initial encounter 851088062 [facility] 03/01/2024 Active IMMUNIZATIONS * None VITAL SIGNS Code Code System Vitals Name Date Value and Un its 8462-4 [facility] Blood Pressure-Diastolic 03/01/2024 78 mmHg 8480-6 [facility] Blood Pressure-Systolic 03/01/2024 1 20 mmHg 8867-4 [facility] Heart Rate 03/01/2024 73 /min 9279-1 [facility] Respiratory Rate 03/01/2024 16 /min 8310-5 [facility] Body Temperature 03/01/2024 97.7 F 96517-3 [facility] Oxygen Saturation 03/01/2024 98 % SOCIAL [...] PHYSICAL NOTES * None IMAGING NOTES * /[place] History: Swelling-Right Hand: The patient presents with [...]
== END 2024-09-18 15:05 | disposition home or self-care (01) ==
LOC: HO.HMCFM 15:03
PROVIDERS: PCP Nurse Practitioner Family; Visit Provider Nurse Practitioner Family
DX: E78.00 Pure hypercholesterolemia, unspecified (principal)